=== PATIENT | male | born 1995 ===

== ENCOUNTER 2025-04-06 13:39 | Emergency (ER) | payer SELFPAY ==
[~2025-04-06] VITALS: Ht 172.7 cm; Wt 63.6 kg
[2025-04-06 13:45] VITALS: BP 128/79; PULSE 78; RESP 15; TEMP 98; O2SAT 99
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
== END 2025-04-06 14:18 ==
LOC: ER 13:40
DX: Z00.01 Encounter for general adult medical examination with abnormal findings (principal)
CPT/HCPCS: 99283